=== PATIENT | male | born 1985 | race Caucasian/White ===

== ENCOUNTER 2020-12-21 12:19 | Emergency (ER) | payer BC ==
[2020-12-21 12:22] VITALS: RESP 18; TEMP 98.9
--- NOTE | 2020-12-21 13:11 | ED ---
URI HPI - General Chief Complaint: Upper Respiratory Infection Stated Complaint: Congestion Time Seen by Provider: 12/21/20 12:25 Source: patient Mode of arrival: ambulatory Limitations: no limitations - History of Present Illness Initial Comments: Patient is a 35-year-old male presenting to the emergency Department with complaints of chest congestion, cough for the last 2-3 days. He does admit to some mild shortness of breath with exertion as well. He denies history of asthma or COPD, he is an every day smoker. Denies fevers, no chest pains. De nies any abdominal pain, no vomiting or diarrhea. Patient states he has been coughing up large amount of yellow phlegm. He states he also feels like he is wheezing. 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 He has no further complaints at this time. Upon arrival to the ER, his vital signs are stable. - Related Data Previous Rx's Medication Instructions Recorded Albuterol Inhaler [Ventolin Hfa 1 puff INHALATION RT-QID PRN #1 12/21/20 Inhaler] puff Azithromycin [Zithromax Z-pack (6 0 mg PO DIRECTED #1 pack 12/21/20 tabs)] methylPREDNISolone [Medrol Dose 4 mg PO DIRECTED #1 pack 12/21/20 Pack] Allergies Allergy/AdvReac Type Severity Reaction Status Date / Time bee venom protein (honey bee) AdvReac Swelling Verified 12/21/20 14:03 Penicillins AdvReac migraines Verified 12/21/20 14:03 shellfish derived [Shellfish] AdvReac generalized Verified 12/21/20 14:03 body pain Review of Systems ROS Statement: Those systems with pertinent positive or pertinent negative responses have been documented in the HPI. ROS Other: All systems not noted in ROS Statement are negative. Past Medical History Past Medical History: No Reported History History of Any Multi-Drug Resistant Organisms: None Reported Past Surgical History: No Surgical Hx Reported Past Psychological History: No Psychological Hx Reported Smoking Status: Current every day smoker Past Alcohol Use History: None Reported Past Drug Use History: None Reported General Exam - General Exam Comments Initial Comments: GENERAL: Patient is well-developed and well-nourished. Patient is nontoxic and in no acute distress. HEAD: Atraumatic, normocephalic. EYES: Pupils equal round and reactive to light, extraocular movements intact, sclera anicteric, conjunctiva are normal. Eyelids were unremarkable. ENT: TMs normal, nares patent, oropharynx clear without exudates. Moist mucous membranes. NECK: Normal range of motion, supple without lymphadenopathy or JVD. LUNGS: Unlabored respirations. Mild scattered wheezes throughout. HEART: Regular rate and rhythm without murmurs, rubs or gallops. ABDOMEN: Soft, nontender, normoactive bowel sounds. No guarding, no rebound. No masses appreciated. : Deferred MUSCULOSKELETAL: Normal extremities with adequate strength and normal range of motion, no pitting or edema. No clubbing or cyanosis. NEUROLOGICAL: Patient is alert and oriented x 3. Motor and sensory are also intact. Cranial nerves II through XII grossly intact. Symmetrical smile. Normal speech, normal gait. PSYCH: Normal mood, normal affect. SKIN: Warm, Dry, normal turgor, no rashes or lesions noted. Limitations: no limitations Course Vital Signs 12/21/20 12/21/20 12/21/20 12:19 13:36 13:46 Temperature 98.9 F Pulse Rate 105 H 100 96 Respiratory 18 Rate Blood Pressure 132/84 O2 Sat by Pulse 97 Oximetry 12/21/20 13:51 Temperature Pulse Rate 92 Respiratory 18 Rate Blood Pressure 131/87 O2 Sat by Pulse 98 Oximetry Medical Decision Making - Medical Decision Making Patient is a 35-year-old male here for cough, chest congestion, wheezing for the last 2 days. No fevers, vital signs are stable. He does have some scattered wheezes throughout on exam. Chest x-ray shows no acute process, including Covid test is negative. Patient was given breathing treatment, does report improvement of symptoms. I discussed with patient this is most likely upper respiratory infection versus bronchitis. Patient will be placed on steroids and azithromycin. Patient is stable for discharge. Patient is in agreement with this plan of care. Return parameters were discussed with the patient and they verbalized understanding. Case discussed with Dr. Becerra. - Lab Data Lab Results 12/21/20 Range/Units 12:56 Coronavirus (PCR) Not Detected (Not Detectd) Disposition Clinical Impression: Bronchitis Disposition: HOME SELF-CARE Condition: Stable Instructions (If sedation given, give patient instructions): Acute Bronchitis (ED) Additional Instructions: Please return to the Emergency Department if symptoms worsen or any other concerns. Take steroids and antibiotic as prescribed. Use inhaler as needed for any shortness of breath. Follow-up with your regular doctor. Prescriptions: methylPREDNISolone [Medrol Dose Pack] 4 mg PO DIRECTED #1 pack Albuterol Inhaler [Ventolin Hfa Inhaler] 1 puff INHALATION RT-QID PRN #1 puff PRN Reason: Shortness Of Breath Azithromycin [Zithromax Z-pack (6 tabs)] 0 mg PO DIRECTED #1 pack Is patient prescribed a controlled substance at d/c from ED?: No Referrals: Sandra Booker MD [Primary Care Provider] - 1-2 days Time of Disposition: 14:06
[2020-12-21] MEDS ORDERED: IPRATROPIUM-ALBUTEROL 3 ML NEB INHALATION STA (13:16)
--- NOTE | 2020-12-21 13:33 | XR ---
EXAMINATION TYPE: XR chest 2V DATE OF EXAM: 12/21/2020 COMPARISON: NONE HISTORY: Cough TECHNIQUE: Frontal and lateral views of the chest are obtained. FINDINGS: There is no focal air space opacity, pleural effusion, or pneumothorax seen. The cardiac silhouette size is within normal limits. The osseous structures are intact. IMPRESSION: No acute cardiopulmonary process.
[2020-12-21 13:52] VITALS: BP 131/87; PULSE 92
== END 2020-12-21 14:16 | disposition home or self-care (01) ==
LOC: EC 12:19
DX: J40 Bronchitis, not specified as acute or chronic (principal); F17.200 Nicotine dependence, unspecified, uncomplicated; Z20.822 Contact with and (suspected) exposure to COVID-19; Z91.030 Bee allergy status; Z88.0 Allergy status to penicillin; Z91.013 Allergy to seafood
CPT/HCPCS: 71046; 87635; 94640; 99284